=== PATIENT | male | born 1970 | race Caucasian/White ===

== ENCOUNTER 2018-02-05 13:56 | Emergency (ER) | payer OTHER ==
[2018-02-05] MEDS ORDERED: PENICILLIN V POTASSIUM 250 MG TAB PO STA (14:18)
[2018-02-05] MEDS ORDERED: IBUPROFEN 600 MG TAB PO STA (14:18)
--- NOTE | 2018-02-05 14:23 | ED ---
ENT HPI - General Chief complaint: Dental/Oral Stated complaint: Dental Pain Time Seen by Provider: 02/05/18 14:03 Source: patient, RN notes reviewed Mode of arrival: ambulatory Limitations: no limitations - History of Present Illness Initial comments: This is a 47-year-old male who presents to the emergency department with chief complaint of dental pain. Patient believes he has a dental abscess. He reports pain to the right lower teeth. He states that this is been present for the last couple of days but has worsened today. States that he has been taking Excedrin with minimal relief. Patient reports he does not have a dentist but will be calling dentist tomorrow to set up an appointment. Patient denies any allergies to medications. He denies any fevers or chills. Denies recent chest pain or shortness of breath, abdominal pain, nausea or vomiting. He denies radiation of pain to the neck. - Related Data Home Medications Medication Instructions Recorded Confirmed Cyclobenzaprine [Flexeril] 10 mg PO TID PRN 07/16/16 07/16/16 Previous Rx's Medication Instructions Recorded Acetaminophen-Codeine 300-30mg 1 tab PO Q4H PRN #20 tablet 07/16/16 [Tylenol #3] Azithromycin [Zithromax Z-pack] 0 mg PO DIRECTED #1 pack 07/16/16 methylPREDNISolone [Medrol Dose 4 mg PO DIRECTED #1 pack 07/16/16 Pack] Ibuprofen 600 mg PO Q6HR #30 tablet 02/05/18 Penicillin V Potassium [Pen Vee K] 500 mg PO QID 10 Days tab 02/05/18 Allergies Allergy/AdvReac Type Severity Reaction Status Date / Time No Known Allergies Allergy Verified 02/05/18 13:58 Review of Systems ROS Statement: Those systems with pertinent positive or pertinent negative responses have been documented in the HPI. ROS Other: All systems not noted in ROS Statement are negative. Past Medical History Past Medical History: No Reported History Additional Past Medical History / Comment(s): back pain History of Any Multi-Drug Resistant Organisms: None Reported Past Surgical History: Appendectomy Past Psychological History: No Psychological Hx Reported Smoking Status: Current every day smoker Past Alcohol Use History: Occasional Past Drug Use History: None Reported General Exam - General Exam Comments Initial Comments: General: Awake and alert, well-developed; in no apparent distress. HEENT: Head atraumatic, normocephalic. Pupils are equal, round and reactive to light. Extraocular movements intact. Oropharynx moist without erythema. Poor dentition throughout. Missing crowns of teeth 30 and 31. There is tenderness along the gumline with no fluctuance or masses palpated. No facial swelling noted. Neck: Supple. Normal ROM. Cardiovascular: Regular rate and rhythm. No murmurs, rubs or gallops. Chest symmetrical. Respiratory: Lungs clear to auscultation bilaterally. No wheezes, rales or rhonchi. Normal respiratory effort with no use of accessory muscles. Musculoskeletal: Normal ROM, no tenderness bilateral upper and lower extremities. Ambulating normally. Skin: [place], warm and dry without rashes or lesions. Neurological: Alert and oriented x3. CN II-XII grossly intact. Speech is fluent and answers are appropriate. No focal neuro deficits. Psychiatric: Normal mood and affect. No overt signs of depression or anxiety noted. Limitations: no limitations Course Vital Signs 02/05/18 13:58 Temperature 97.8 F Pulse Rate 118 H Respiratory 20 Rate Blood Pressure 157/99 O2 Sat by Pulse 100 Oximetry Medical Decision Making - Medical Decision Making This is a 47-year-old male who presents to the emergency department with chief complaint of dental pain. Patient is missing crowns of teeth 30 and 31. There is tenderness along the gumline with no masses or areas of fluctuance noted. No facial swelling. No fevers or chills. Patient will be started on penicillin VK as well as ibuprofen 600 mg. Recommended following up with a dentist. Patient states he will be calling tomorrow morning. Patient is in no acute distress and will be discharged home at this time. He is in agreement and voices understanding. All questions answered. Disposition Clinical Impression: Dental caries, Toothache Disposition: HOME SELF-CARE Condition: Good Instructions: Dental Caries (ED), Toothache (ED) Additional Instructions: Please follow-up with a dentist as discussed. Please take medications as prescribed. Please follow up with primary care provider within 1-2 days. Return to emergency department if symptoms should worsen or any concerns arise. Prescriptions: Ibuprofen 600 mg PO Q6HR #30 tablet Penicillin V Potassium [Pen Vee K] 500 mg PO QID 10 Days tab Is patient prescribed a controlled substance at d/c from ED?: No Referrals: None,Stated [Primary Care Provider] - 1-2 days Time of Disposition: 14:22
[2018-02-05] MEDS ORDERED: KETOROLAC 30 MG/ML 1 ML VIAL IM STA (14:44)
[2018-02-05 15:01] VITALS: BP 152/78; PULSE 89; RESP 18; TEMP 98.7
== END 2018-02-05 14:55 | disposition home or self-care (01) ==
LOC: EC 13:56
DX: K02.9 Dental caries, unspecified (principal); F17.200 Nicotine dependence, unspecified, uncomplicated
CPT/HCPCS: 99282; 96372; J1885